=== PATIENT | male | born 1950 | race Caucasian/White ===

== ENCOUNTER 2023-03-16 16:10 | Emergency (ER) | payer MEDICARE, OTHER ==
[~2023-03-16] VITALS: Ht 170.1 cm; Wt 108.8 kg
--- NOTE | 2023-03-16 17:39 | ED Hip Pain/Injury ---
General Chief Complaint: Hip/Pelvic Problems Stated Complaint: RIGHT HIP/BACK PAIN Nursing Triage Note: PT AMB TO TRIAGE WITH CC OF R HIP PAIN THAT RADIATES DOWN HIS R LEG X 2 WEEKS. PT STATES PAIN INCREASES WITH WALKING AND BENDING OVER DENIES INJURY. Source: patient Exam Limitations: no limitations History of Present Illness Date Seen by Provider: Mar 16, 2023 Time Seen by Provider: 17:23 Initial Comments 72-year-old male presents to the ER with complaint pain that starts in his right hip radiates down his buttock to his right knee. States this pain started ap proximately 2 weeks ago. Reports that pain is worse with walking. He denies lower back pain. Denies saddle paresthesia. Reports some urinary incontinence, states that he is dribbling, but is able to tell when he has to go to the bathroom, states he just does not get there in time. Does have a history of BPH. Denies bowel incontinence. Allergies and Home Medications Allergies Coded Allergies: No Known Drug Allergies (Unverified , 03/16/23) Patient Home Medication List Home Medication List Reviewed: Yes Cyclobenzaprine HCl (Cyclobenzaprine HCl) 10 Mg Tablet, 10 MG PO TID Prescribed by: Kristen Escobar on 03/16/231913 Methylprednisolone (Methylprednisolone Dose Pack) 4 Mg Tab.ds.pk, 4 MG PO UD Prescribed by: Kristen Escobar on 03/16/231913 Review of Systems Constitutional: see HPI Past Ubcpyhw-Zzmzpb-Dtdgei Hx Patient Social History Tobacco Use?: No Substance use?: No Alcohol Use?: No Pt feels they are or have been: No Past Medical History Surgery/Hospitalization HX: DM 2, 1 STENT, HX OF HEART ATTACK Physical Exam Vital Signs Vital Signs - First Documented 03/16/23 16:21 Temp 36.6 Pulse 71 Resp 16 B/P (MAP) 139/68 (91) Pulse Ox 95 O2 Delivery Room Air Capillary Refill : Less Than 3 Seconds Height, Weight, BMI Height: '" Weight: lbs. oz. kg; 37.00 BMI Method: General Appearance: No Apparent Distress, WD/WN Neck: Normal Inspection, Supple Cardiovascular: Regular Rate, Rhythm Respiratory: Lungs Clear, Normal Breath Sounds, No Accessory Muscle Use, No Respiratory Distress Back: Normal Inspection, No Vertebral Tenderness Extremity: Normal Inspection, Normal Range of Motion, Non Tender Neurologic/Psychiatric: Alert, Normal Mood/Affect Skin: Normal Color, Warm/Dry Progress/Results/Core Measures Results/Orders Lab Results Laboratory Tests Test 03/16/23 18:21 03/16/23 18:48 Range/Units Urine Color YELLOW Urine Clarity CLEAR Urine pH 8.5 5-9 Urine Specific Valentines 1.020 1.016-1.022 Urine Protein 3+ H NEGATIVE Urine Glucose (UA) 1+ H NEGATIVE Urine Ketones NEGATIVE NEGATIVE Urine Nitrite NEGATIVE NEGATIVE Urine Bilirubin NEGATIVE NEGATIVE Urine Urobilinogen 0.2 < = 1.0 MG/DL Urine Leukocyte Esterase NEGATIVE NEGATIVE Urine RBC (Auto) 1+ H NEGATIVE Urine RBC 0-2 /HPF Urine WBC 2-5 /HPF Urine Squamous Epithelial Cells 2-5 /HPF Urine Crystals PRESENT H /LPF Urine Amorphous Sediment RARE BERNABE PHOSPHATE H /LPF Urine Bacteria FEW H /HPF Urine Casts NONE /LPF Urine Mucus SMALL H /LPF Urine Culture Indicated NO Glucometer 157 H 70-110 MG/DL My Orders Orders - KRISTEN SENIOR APRN Ua Culture If Indicated (03/16/23 17:31) Accucheck Stat ONCE (03/16/23 17:31) Dexamethasone Injection (Dexamethasone (03/16/23 17:45) Orphenadrine Inj (Ed Only) (Orphenadrine (03/16/23 17:45) Medications Given in ED Vital Signs/I&O 03/16/23 03/16/23 16:21 19:20 Temp 36.6 36.5 Pulse 71 74 Resp 16 16 B/P (MAP) 139/68 (91) 144/72 Pulse Ox 95 95 O2 Delivery Room Air Room Air Blood Pressure Mean: 91 Progress Progress Note : Progress Note Patient seen and evaluated, resting comfortably in bed, no acute distress. Based on exam and symptoms, this is likely sciatic nerve pain. Urinalysis ordered and a blood sugar ordered due to dribbling of urine. Decadron and Norflex ordered. 1912 Urinalysis shows 3+ protein, 1+ glucose, 1+ RBC, 2-5 WBCs, 2-5 squamous epithelial cells, few bacteria. I do not believe that this is a urinary tract infection. Dribbling and urgency likely related to BPH. Blood sugar is 157. Results discussed with patient. Patient reports improvement in pain. Will discharge with prescription for Medrol Dosepak and Flexeril. Discharge instructions and return precautions provided. Departure Impression Primary Impression: Sciatica of right side Disposition: HOME, SELF-CARE Condition: Stable Departure-Patient Inst. Decision time for Depature: 19:13 Referrals: NO,LOCAL PHYSICIAN (PCP/Family) Primary Care Physician Patient Instructions: Sciatica Exercises Add. Discharge Instructions: Complete full course of Medrol Dosepak. Take Flexeril as needed for pain, it may make you sleepy. Follow-up with your primary care provider if symptoms are not improving. Return if you are having numbness and tingling in your groin area, you have loss of control of your bowel or bladder, you are unable to walk, or any other new, concerning, or worsening symptoms. All discharge instructions reviewed with patient and/or family. Voiced understanding. Scripts Cyclobenzaprine HCl (Cyclobenzaprine HCl) 10 Mg Tablet 10 MG PO TID, #21 TAB 0 Refills Prov: KRISTEN SENIOR APRN 03/16/23 Methylprednisolone (Methylprednisolone Dose Pack) 4 Mg Tab.ds.pk 4 MG PO UD for 6 Days, #21 PKG 0 Refills PER DOSE PACK INSTRUCTIONS Prov: KRISTEN SENIOR APRN 03/16/23 KRISTEN SENIOR APRN Mar 16, 2023 17:39
[2023-03-16] MEDS ORDERED: dexAMETHasone INJ 10 MG/ML 1 ML VIAL IM ONE (17:45)
[2023-03-16] MEDS ORDERED: ORPHENADRINE 60 MG/2 ML AMP (ED ONLY) IM ONE (17:45)
[2023-03-16 18:37] LABS: AMORPHOUS SEDIMENT,UR RARE AMOR PHOSPHATE /LPF; BACTERIA,URINE FEW /HPF; BILIRUBIN,URINE NEGATIVE (NEGATIVE); CLARITY,URINE CLEAR; COLOR,URINE YELLOW; GLUCOSE, URINE (UA) 1+ (NEGATIVE); KETONES,URINE NEGATIVE (NEGATIVE); LEUKOCYTE ESTERASE ,URINE NEGATIVE (NEGATIVE); NITRITE,URINE NEGATIVE (NEGATIVE); PH,URINE 8.5 (5-9); PROTEIN,URINE 3+ (NEGATIVE); RBC,URINE 0-2 /HPF
[2023-03-16] MEDS ORDERED: METH4TAB10 PO (19:14)
[2023-03-16] MEDS ORDERED: CYCL10TA25 PO (19:14)
[2023-03-16 19:20] VITALS: BP 144/72
== END 2023-03-16 19:20 | disposition home or self-care (01) ==
LOC: ER 16:11
DX: M54.31 Sciatica, right side (principal); R82.71 Bacteriuria
CPT/HCPCS: 81000; 82947

== ENCOUNTER 2023-03-27 16:51 | Emergency (ER) | payer MEDICARE ==
[~2023-03-27] VITALS: Ht 170 cm; Wt 108.8 kg
[~2023-03-27 16:51] MED LIST: CYCL10TA25 PO; METH4TAB10 PO
[2023-03-27 17:07] VITALS: BP 167/76
--- NOTE | 2023-03-27 17:27 | ED Lower Extremity ---
General Chief Complaint: Lower Extremity Stated Complaint: SORE RIGHT FOOT Source: patient Exam Limitations: no limitations History of Present Illness Date Seen by Provider: Mar 27, 2023 Time Seen by Provider: 17:14 Initial Comments Patient is a 72yo male who presents to the ER with a concern of infected right foot wound. He states earlier today the second toe on his right foot was very red and uncomfortable and he related it to a skin wound he acquired 3 weeks ago when his dog stepped on his foot and scrapped the base of that toe with his toenail. He has been washing is religiously and keeping it covered with a bandaid and triple antibiotic ointment. He states he has "opened" it once and it was bloody - no pus. He has chronic erythema of the right leg. Some persistent moriah LE edema. He is on diuretics - still makes urine but is a renal failure patient on HD for 3 years. 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 Recently moved from [place]. He denies fevers, SOB or any other concerns of illness. Onset: other (3 weeks) Severity: mild Pain/Injury Location: right 2nd toe Method of Injury: direct blow Modifying Factors: Worse With Movement Allergies and Home Medications Allergies Coded Allergies: No Known Drug Allergies (Unverified , 03/16/23) Patient Home Medication List Home Medication List Reviewed: Yes Cyclobenzaprine HCl (Cyclobenzaprine HCl) 10 Mg Tablet, 10 MG PO TID Prescribed by: Kristen Escobar on 03/16/231913 Methylprednisolone (Methylprednisolone Dose Pack) 4 Mg Tab.ds.pk, 4 MG PO UD Prescribed by: Kristen Escobar on 03/16/231913 Review of Systems Constitutional: see HPI EENTM: no symptoms reported Cardiovascular: no symptoms reported Gastrointestinal: no symptoms reported Genitourinary: no symptoms reported Musculoskeletal: no symptoms reported Skin: other (skin wound) All Other Systems Reviewed Negative Unless Noted: Yes Past Fywejot-Wdtwwf-Kaqvmc Hx Past Medical History Surgery/Hospitalization HX: DM 2, 1 STENT, HX OF HEART ATTACK Physical Exam Vital Signs Vital Signs - First Documented 03/27/23 17:07 Temp 36.6 Pulse 90 Resp 20 B/P (MAP) 167/76 (106) Pulse Ox 93 O2 Delivery Room Air Capillary Refill : Height, Weight, BMI Height: '" Weight: lbs. oz. kg; 37.00 BMI Method: General Appearance: WD/WN, no apparent distress HEENT: PERRL/EOMI Respiratory: no respiratory distress, no accessory muscle use Hips: bilateral hip non-tender, bilateral hip normal inspection, bilateral hip normal range of motion, bilateral hip no evidence of injury Legs: right leg other (erythema right anterior leg - mildly tender (chronic)) Knees: bilateral knee normal inspection Ankles: bilateral ankle swelling (right > left) Feet: left foot non-tender, left foot normal inspection, left foot normal range of motion, left foot no evidence of injury; right foot other (small shallow ulcer with dry base at the base of the second toe. mildly tender to palpation. No fluctuance. no erythema. no streaking) Neurologic/Tendon: normal sensation, normal motor functions Neurologic/Psychiatric: alert, normal mood/affect, oriented x 3 Skin: normal color, warm/dry, other (as above) Progress/Results/Core Measures Results/Orders Vital Signs/I&O 03/27/23 17:07 Temp 36.6 Pulse 90 Resp 20 B/P (MAP) 167/76 (106) Pulse Ox 93 O2 Delivery Room Air Progress Progress Note : Time: 17:32 Progress Note Patient seen and evaluated by me. Eval today includes physical exam. Pertinent physical exam findings - WDWN male in NAD. Small <0.5cm wound to the dorsum of the right foot at the base of the second toe - shallow, not purulent. mildly tender to palpation. No surrounding erythema. No lymphangitic streaking. No increased warmth. ddx based on H&P - ulcer patient congratulated on job well done taking care of his foot wound. It looks really good and does not appear infected at this time. I advised the patient to keep doing what he's doing as far as wound care. He has no local doctor so requested some names for consideration which we gave him. I advised the patient that due to his kidney disease he would be a slow healer, but that he was going the right direction. Adivsed him to keep a very close eye on the wound and if it became more painful, red or was "streaking" up the foot - to return to the Emergency Department. He verbalized understanding of the d/c instructions. All questions were sought and answered. Departure Impression Primary Impression: skin wound of [facility] foot Additional Impression: End stage renal disease Disposition: 01 HOME, SELF-CARE Condition: Stable Departure-Patient Inst. Decision time for Depature: 17:26 Referrals: NO,LOCAL PHYSICIAN (PCP/Family) Primary Care Physician Patient Instructions: LOCAL PHYSICIAN LIST, Taking care of cuts, scrapes, and puncture wounds Add. Discharge Instructions: Continue the wound care you have been doing. Wash the affected area twice a day with a mild soap and water. You can apply triple antibiotic ointment once a day. Let the wound dry out, uncovered while at rest. Monitor the wound for increased redness, swelling, drainage - if any of this occurs, please return for re-evaluation. New doctors to consider - 1) Dr Sariah Perez 2) Dr Jesse Jain 3) DAY Cassidy MD Mar 27, 2023 17:27
== END 2023-03-27 17:40 | disposition home or self-care (01) ==
LOC: EDUNIT# 16:51 → ER 16:53
DX: S90.921A Unspecified superficial injury of right foot, initial encounter (principal); E11.22 Type 2 diabetes mellitus with diabetic chronic kidney disease; N18.6 End stage renal disease; X58.XXXA Exposure to other specified factors, initial encounter
CPT/HCPCS: 99281